=== PATIENT | male | born 2000 | race Caucasian/White ===

== ENCOUNTER 2022-12-29 08:47 | Emergency (ER) | payer MEDICAID ==
[~2022-12-29] VITALS: Ht 182.9 cm; Wt 68.0 kg
[2022-12-29 09:40] LABS: CLARITY,URINE CLOUDY (Clear); COLOR,URINE YELLOW (Yellow); GLUCOSE, URINE NEGATIVE (Neg); KETONES,URINE NEGATIVE (Neg); LEUKOCYTE ESTERASE ,URINE NEGATIVE (Neg); NITRITES, URINE NEGATIVE (Neg); OCCULT BLOOD,URINE NEGATIVE (Neg); PROTEIN,URINE NEGATIVE (Neg); UROBILINOGEN,URINE 0.2 E.U/dL (0.2-1.0)
[2022-12-29 09:41] LABS: UA COLLECTION TYPE CLN CATCH MIDSTREAM
[2022-12-29 09:46] LABS: AMORPHOUS URATES 3+; BACTERIA,URINE FEW /HPF (Neg); RBC,URINE NONE SEEN /HPF (0-2); SQUAMOUS EPITHELIAL CELL,UR NONE SEEN /LPF (FEW); WBC,URINE 0-4 /HPF (0-4)
[2022-12-29 09:47] LABS: MUCUS STRANDS FEW /LPF (Neg)
[2022-12-29] MEDS ORDERED: ketorolac trometh. 30mg/ml inj. IV ONE (10:45)
[2022-12-29] MEDS ORDERED: normal saline 1000ml 1,000 ML IV ONE (10:45)
[2022-12-29] MEDS ORDERED: ondansetron/PF 4mg/2ml inj IV ONE (10:45)
[2022-12-29 10:56] LABS: BASOPHILS % (AUTO) 0.1 % (0-1); EOSINOPHILS # (AUTO) 0.1 X10'3 (0-0.9); EOSINOPHILS % (AUTO) 0.5 % (0-6); HEMATOCRIT 46.3 % (42.0-52.0); HEMOGLOBIN 15.5 g/dl (14.0-17.9); LYMPHOCYTES # (AUTO) 1.8 X10'3 (1.1-4.8); LYMPHOCYTES % (AUTO) 12.2 % (21-51); MEAN CORPUSCULAR HEMOGLOBIN 30.2 PG (27.0-31.0); MEAN CORPUSCULAR HGB CONC 33.4 g/dL (33.0-36.5); MEAN CORPUSCULAR VOLUME 90.3 FL (78-98); MEAN PLATELET VOLUME 8.9 FL (7.4-10.4); MONOCYTES # (AUTO) 0.7 X10'3 (0-0.9); MONOCYTES % (AUTO) 4.6 % (2-12); NEUTROPHILS # (AUTO) 12.1 X10'3 (1.8-7.7); NEUTROPHILS % (AUTO) 82.6 % (42-75); PLATELET COUNT 350 X10'3 (140-440); RED BLOOD COUNT 5.13 X10'6 (4.70-6.10); RED CELL DISTRIBUTION WIDTH 13.1 % (11.5-14.5); WHITE BLOOD COUNT 14.6 X10'3 (4.5-11.0)
[2022-12-29 11:14] LABS: ALANINE AMINOTRANSFERASE 16 U/L (12-78); ALBUMIN 4.6 G/DL (3.4-5.0); ALBUMIN/GLOBULIN RATIO 1.2 (1.1-1.5); ALKALINE PHOSPHATASE 80 IU/L (20-180); ANION GAP 10 (8-16); ASPARTATE AMINO TRANSFERASE 21 U/L (10-37); BILIRUBIN,TOTAL 0.4 MG/DL (0.1-1.0); BLOOD UREA NITROGEN 9 MG/DL (7-18); BUN/CREATININE RATIO 9.7 (10.0-20.0); CALCIUM 10.1 MG/DL (8.5-10.1); CHLORIDE 104 MMOL/L (99-107); CREATININE 0.93 MG/DL (0.60-1.10); GLUCOSE 132 MG/DL (70-104); LIPASE < 50 U/L (73-393); POTASSIUM 3.5 MMOL/L (3.5-5.1); SODIUM 141 MMOL/L (135-145); TOTAL CARBON DIOXIDE 26.9 MMOL/L (24-32); TOTAL PROTEIN 8.3 G/DL (6.4-8.2); eGFR > 90 ML/MIN
[2022-12-29] MEDS ORDERED: haloperidol lactate 5mg/ml inj IVH ONE (11:15)
[2022-12-29] MEDS ORDERED: LORazepam 2 mg/ml vial IV ONE (11:15)
--- NOTE | 2022-12-29 13:39 | NUR ---
PT'S MOTHER CALLED WANTING TO DISCUSS PT'S HYPEREMISIS, INSISTING THAT ADDITIONAL TEST BE DONE. PT WAS ASKED IF INFORMATION MAYBE SHARED WITH HIS MOTHER, PT HAS GIVEN PERMISSION. 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 PT'S MOTHER CONTINUED TO TALK OVER THE RN AND YELLING, WAS INFORMED THAT THIS CONVERSATION WOULD BE ENDING IF SHE CONTINUED TO YELL ON THE PHONE. MOTHER CONTINUED YELLING AND THE CONVERSATION WAS BY THE RN ENDED BY HANGING UP. MOTHER CALLED BACK MULTIPLE TIMES AND SPOKE WITH ELIN, ER DIRECTOR WHO ATTEMPTED TO EXPLAIN TO HER THAT ALL THE TESTS WERE DONE THAT WAS NECESSARY AND A DIAGNOSIS WAS MADE THAT WAS RELATED TO THE PT'S DENNISA SMOKING ON A DAILY BASIS AND THAT IF THE PT WANTED FURTHER EVALUATION IT COULD BE DONE ON AN OUTPATIENT BASIS THROUGH HIS PMD. THE CONVERSATION WAS ENDED BY THE DIRECTOR A RESULT OF THE MOTHER NOT ACCEPTING THE ANSWERS THAT THE DIRECTOR WAS PRESENTING. ELIN INFORMED THE MOTHER, "STU; IF YOU DO NOT STOP TALKING OVER ME, RAISING YOUR VOICE AND NOT ALLOW ME TO SPEAK, I WILL HAVE TO END THIS CONVERSATION".
[2022-12-29 13:46] VITALS: BP 113/49
== END 2022-12-29 13:48 | disposition home or self-care (01) ==
LOC: ER 08:48
DX: R11.2 Nausea with vomiting, unspecified (principal); R10.13 Epigastric pain; R19.7 Diarrhea, unspecified; F12.90 Cannabis use, unspecified, uncomplicated; Z72.89 Other problems related to lifestyle; Z98.890 Other specified postprocedural states; Z88.0 Allergy status to penicillin
CPT/HCPCS: 36415; 76700; 80053; 81001; 83690; 85025; 96361; 96374; 96375; 99285; J1630; J1885; J2060; J2405; J7030

== ENCOUNTER 2024-02-25 16:31 | Emergency (ER) | payer MEDICAID ==
[~2024-02-25] VITALS: Ht 182.9 cm; Wt 67.8 kg
[2024-02-25 17:02] VITALS: BP 141/61; PULSE 66; TEMP 97.8; O2SAT 98
[2024-02-25] MEDS ORDERED: IBUP-1984 PO (17:43)
[2024-02-25 18:02] VITALS: RESP 16
[2024-02-25] MEDS: ketorolac tromethamine 15mg/ml inj. IM ONE (18:02)
== END 2024-02-25 18:04 | disposition home or self-care (01) ==
LOC: ER 16:32
DX: S90.31XA Contusion of right foot, initial encounter (principal); F12.90 Cannabis use, unspecified, uncomplicated; Z88.0 Allergy status to penicillin; Z79.899 Other long term (current) drug therapy; X58.XXXA Exposure to other specified factors, initial encounter; Y93.89 Activity, other specified; Y92.89 Other specified places as the place of occurrence of the external cause; Y99.8 Other external cause status
CPT/HCPCS: 73630; 96372; 99284; J1885

== ENCOUNTER 2024-06-11 11:13 | Emergency (ER) | payer MEDICAID, OTHER ==
[~2024-06-11] VITALS: Ht 182.9 cm; Wt 68.0 kg
[2024-06-11 12:06] LABS: BASOPHILS % (AUTO) 0.1 % (0-1); EOSINOPHILS % (AUTO) 0.4 % (0-6); HEMATOCRIT 50.2 % (42.0-52.0); LYMPHOCYTES # (AUTO) 1.4 X10'3 (1.1-4.8); LYMPHOCYTES % (AUTO) 10.3 % (21-51); MEAN CORPUSCULAR HEMOGLOBIN 30.7 PG (27.0-31.0); MEAN CORPUSCULAR HGB CONC 33.9 g/dL (33.0-36.5); MEAN CORPUSCULAR VOLUME 90.6 FL (78-98); MEAN PLATELET VOLUME 8.3 FL (7.4-10.4); MONOCYTES # (AUTO) 0.7 X10'3 (0-0.9); MONOCYTES % (AUTO) 5.5 % (2-12); NEUTROPHILS # (AUTO) 11.2 X10'3 (1.8-7.7); NEUTROPHILS % (AUTO) 83.7 % (42-75); PLATELET COUNT 338 X10'3 (140-440); RED BLOOD COUNT 5.54 X10'6 (4.70-6.10); RED CELL DISTRIBUTION WIDTH 12.2 % (11.5-14.5); WHITE BLOOD COUNT 13.3 X10'3 (4.5-11.0)
[2024-06-11] MEDS: ondansetron/PF 4mg/2ml inj IV ONE (12:11)
[2024-06-11] MEDS: ketorolac trometh 30MG/ML vial 30 MG/ML VIAL IV ONE (12:12)
[2024-06-11] MEDS: normal saline 1000ml 1,000 ML IV ONE (12:13)
[2024-06-11 12:24] LABS: ALANINE AMINOTRANSFERASE 25 U/L (12-78); ALBUMIN 4.8 G/DL (3.4-5.0); ALBUMIN/GLOBULIN RATIO 1.3 (1.1-1.5); ALKALINE PHOSPHATASE 69 IU/L (46-116); ANION GAP 14 (8-16); ASPARTATE AMINO TRANSFERASE 20 U/L (10-37); BILIRUBIN,TOTAL 0.7 MG/DL (0.1-1.0); BLOOD UREA NITROGEN 9 MG/DL (7-18); BUN/CREATININE RATIO 7.8 (10.0-20.0); CALCIUM 9.9 MG/DL (8.5-10.1); CHLORIDE 103 MMOL/L (99-107); CREATININE 1.15 MG/DL (0.60-1.10); GLUCOSE 118 MG/DL (70-104); LIPASE 26 U/L (16-77); POTASSIUM 3.7 MMOL/L (3.5-5.1); SODIUM 139 MMOL/L (135-145); TOTAL CARBON DIOXIDE 22.4 MMOL/L (24-32); TOTAL PROTEIN 8.5 G/DL (6.4-8.2); eCRCL 98 ML/MIN; eGFR 80 ML/MIN
[2024-06-11] MEDS ORDERED: iohexol 300mg/ml 100ml inj. ONE (14:09)
[2024-06-11 14:24] LABS: BILIRUBIN,URINE MODERATE (Neg); CLARITY,URINE SLIGHTLY CLOUDY (Clear); COLOR,URINE YELLOW (Yellow); GLUCOSE, URINE NEGATIVE (Neg); KETONES,URINE 40 mg/dl (Neg); LEUKOCYTE ESTERASE ,URINE NEGATIVE (Neg); OCCULT BLOOD,URINE LARGE (Neg); PROTEIN,URINE 100 mg/dl (Neg)
[2024-06-11 14:33] LABS: NITRITES, URINE NEGATIVE (Neg); UA COLLECTION TYPE URINAL
[2024-06-11 14:36] LABS: RBC,URINE 50-100 /HPF (0-2); SQUAMOUS EPITHELIAL CELL,UR FEW /LPF (FEW)
[2024-06-11 14:37] LABS: BACTERIA,URINE FEW /HPF (Neg); MUCUS STRANDS MODERATE /LPF (Neg)
[2024-06-11 15:09] LABS: URINE AMPHETAMINE SCREEN NEGATIVE (Neg); URINE BARBITUATE SCREEN NEGATIVE (Neg); URINE BENZODIAZEPINES SCREEN NEGATIVE (Neg); URINE CANNABINOID SCREEN POSITIVE (Neg); URINE COCAINE SCREEN POSITIVE (Neg); URINE METHADONE SCREEN NEGATIVE (Neg); URINE OPIATE SCREEN NEGATIVE (Neg); URINE PHENCYCLIDINE SCREEN NEGATIVE (Neg)
[2024-06-11 16:05] VITALS: BP 122/84; PULSE 54; RESP 16; TEMP 98; O2SAT 98
== END 2024-06-11 16:07 | disposition home or self-care (01) ==
LOC: ER 11:14
DX: M54.50 Low back pain, unspecified (principal); R11.2 Nausea with vomiting, unspecified; F12.90 Cannabis use, unspecified, uncomplicated; Z88.0 Allergy status to penicillin; Z98.890 Other specified postprocedural states
CPT/HCPCS: 36415; 74177; 80053; 80305; 81001; 83690; 85025; 87088; 96361; 96374; 96375; 99285; J1885; J2405; J7030; Q9967